=== PATIENT | female | born 1970 ===

== ENCOUNTER 2018-01-30 06:09 | Day surgery (SDC) | payer OTHER ==
[2018-01-27 15:05] VITALS: BMI 29.5
[2018-01-30] MEDS ORDERED: BUPIVACAINE HCL/PF 0.25% (2.5MG/ML) 10 ML VIAL ONE (07:07)
[2018-01-30] MEDS ORDERED: DESFLURANE GAS 240 ML BOTTLE IH ONE (07:32)
[2018-01-30] MEDS ORDERED: PROPOFOL 20 ML ONE ×3 (07:43)
[2018-01-30] MEDS ORDERED: SUCCINYLCHOLINE CHLORIDE 200 MG/10 ML VIAL ONE (07:43)
[2018-01-30] MEDS ORDERED: fentaNYL CITRATE 250 MCG/5 ML VIAL ONE (07:43)
[2018-01-30] MEDS ORDERED: ACETAMINOPHEN INJECTION 100 ML IVPB ONE (08:19)
[2018-01-30] MEDS ORDERED: ceFAZolin SODIUM 1 GM VIAL IVPB ONE (08:30)
[2018-01-30] MEDS ORDERED: ceFAZolin SODIUM 1 GM VIAL ONE (08:35)
[2018-01-30] MEDS ORDERED: LIDOCAINE HCL/PF 2% SDV 5ML VIAL ONE (08:35)
[2018-01-30] MEDS ORDERED: DEXAMETHASONE SOD PHOSPHATE 4 MG/1 ML VIAL ONE (08:35)
[2018-01-30] MEDS ORDERED: GLYCOPYRROLATE 0.2 MG/1 ML VIAL ONE (08:35)
[2018-01-30] MEDS ORDERED: IBUPROFEN 800 MG/8 ML IJ IVPB PRN (09:22)
[2018-01-30] MEDS ORDERED: ONDANSETRON 4 MG/2 ML VIAL IVPUSH PRN (09:22)
[2018-01-30] MEDS ORDERED: methylPREDNISolone ACET (DEPO) 40 MG/1 ML VIAL NR ONE (09:26)
[2018-01-30] MEDS ORDERED: BUPIVACAINE HCL/PF 0.25% (2.5MG/ML) 10 ML VIAL IJ ONE (09:26)
[2018-01-30] MEDS ORDERED: LACTATED RINGERS SOLUTION 1,000 ML IV SCH (09:30)
--- NOTE | 2018-01-30 09:59 | OP ---
Operative Note - Note: Operative Date: 01/30/18 Pre-Operative Diagnosis: 1. Synovitis left knee. 2. Internal derangement left knee. 3. Tricompartment arthritis left knee. 4. Left knee valgus deformity Operation: 1. Surgical arthroscopy left knee. 2. Partial lateral meniscectomy ( anterior horn). 3. Chondroplasty (LFC, LTP). 4. Synovial biopsy. 5. Debridement Findings: 1. Partial tear anterior horn lateral meniscus 2. 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 Chondromalacia with deep fissuring trochlear groove, lateral femoral condyle , lateral tibial plateau 4. Diffuse synovitis 5. Degenerative ACL Post-Operative Diagnosis: Same as Pre-op Surgeon: Billy Marie Anesthesiologist/ELECTRIC SERVICEMAN: Molly Young Anesthesia: General, Local Specimens Removed: Synovial biopsy Estimated Blood Loss (mls): 0 Fluid Volume Replaced (mls): 900 Operative Report Dictated: Yes
[2018-01-30] MEDS ORDERED: LEVOTHYROXINE NA 112 MCG TABLET (FP) PO SCH (10:00)
[2018-01-30] MEDS ORDERED: LEVOTHYROXINE NA 100 MCG TABLET (FP) PO SCH (10:00)
--- NOTE | 2018-01-30 10:04 | PN ---
Progress Note (short form) - Note Progress Note: 47F s/p surgical arthroscopy left knee, partial lateral meniscectomy, and chondroplasty medial femoral condyle & lateral tibial plateau POD #0. -Pain control: Meloxicam & oxycodone PRN. -Incentive spirometry. -No chemical DVT PPx. -WBAT LLE. -Keep dressing clean & dry. -d/c dressing on Tuesday; cover incision sites with waterproof Band-Aids; OK to resume showering thereafter. -Cane vs crutches. -f/u in [facility] [place] [facility] on Tuesday02/03/2018; call for appointment; . Billy Marie MD (Orthopaedic Surgery).
[2018-01-30 11:58] VITALS: PULSE 68
[2018-01-30] MEDS ORDERED: oxyCODONE HCL 5 MG TABLET ONE (12:19)
[2018-01-30] MEDS ORDERED: KETOROLAC TROMETHAMINE 30 MG/1 ML VIAL ONE (12:32)
[2018-01-30] MEDS ORDERED: KETOROLAC TROMETHAMINE 15 MG/ML VIAL IVPUSH ONE (14:15)
[2018-01-30 17:07] VITALS: BP 120/68; TEMP 98.2
--- NOTE | 2018-01-30 18:06 | OP ---
DATE OF OPERATION: 01/30/2018 PREOPERATIVE DIAGNOSES: 1. Synovitis, left knee. 2. Internal derangement, left knee. 3. Tricompartmental arthritis, left knee. 4. Left knee valgus deformity. POSTOPERATIVE DIAGNOSES: 1. Synovitis, left knee. 2. Internal derangement, left knee. 3. Tricompartmental arthritis, left knee. 4. Left knee valgus deformity. 5. Partial tear anterior horn lateral meniscus. 6. Chondromalacia with bone exposed articular surface of the patella. 7. Chondromalacia with deep fissuring trochlear groove, lateral femoral condyle, lateral tibial plateau. 8. Diffuse synovitis. 9. Degenerative anterior cruciate ligament. OPERATION: 1. Surgical arthroscopy, left knee. 2. Partial lateral meniscectomy (anterior horn). 3. Chondroplasty (lateral femoral condyle, lateral tibial plateau). 4. Synovial biopsy. 5. General debridement and irrigation. SURGEON: Billy Marie MD ANESTHESIOLOGIST: Molly Young MD ANESTHESIA: General, local. SPECIMENS REMOVED: Synovial biopsy. ESTIMATED BLOOD LOSS: 0. FLUID REPLACEMENT: 900 mL crystalloid. TOURNIQUET PRESSURE: 300 mmHg. TOURNIQUET TIME: 38 minutes. Intra-articular injection delivered at the end of the case 5 mL 0.25% Marcaine without epinephrine and 2 mL of Depo-Medrol 40 mg per mL. Billy Marie MD DS/[id number]
--- NOTE | 2018-01-31 18:30 | PATH ---
Surgical Pathology Report Patient Name: ZACH DUMONT [facility]. Rec. #: [id number] /Age/Gender: 1970 (Age: 47) / F Account: [id number] Location: [facility] SUR[facility]ICAL Taken: 01/30/2018 Received: 01/30/2018 Reported: 01/31/2018 Physicians: Billy Marie M.D. Specimen(s) Received SYNOVIAL BIOPSY LEFT KNEE Clinical History Torn lateral meniscus left knee Final Diagnosis LEFT KNEE, SYNOVIAL BIOPSY: FIBROSYNOVIAL TISSUE WITH LYMPHOPLASMACYTIC (CHRONIC) INFLAMMATORY INFILTRATE AND REACTIVE SYNOVIAL HYPERPLASIA. Comments: Although these findings are nonspecific, dense lymphoplasmacytic infiltrate involving synovium with reactive synovial hyperplasia may be seen in association with rheumatoid arthritis. Correlation with clinical/ radiologic and serologic findings is suggested. Electronically Signed Franci Schaeffer M.D. Gross Description Received in formalin labeled "biopsy left knee," is a 1.1 x 1.0 x 0.2 cm aggregate of simpson soft tissue fragments. The specimen is entirely submitted in one cassette. /01/30/2018 saudi/01/30/2018
== END 2018-01-30 16:30 | disposition home or self-care (01) ==
LOC: JASU-SURG 06:09
PROVIDERS: ATTEND Orthopaedic Surgery Adult Reconstructive Orthopaedic Surgery
PROC: 0SBD4ZZ Excision of Left Knee Joint, Percutaneous Endoscopic Approach (ICD-10-PCS; principal; 2018-01-30 07:30)
DX: M23.8X2 Other internal derangements of left knee (principal); M65.9 Synovitis and tenosynovitis, unspecified; M17.12 Unilateral primary osteoarthritis, left knee; M23.242 Derangement of anterior horn of lateral meniscus due to old tear or injury, left knee; M94.262 Chondromalacia, left knee
CPT/HCPCS: 84703; 88304-TC; 94760; 97116-GP; J0131